=== PATIENT | female | born 1965 | race Caucasian/White ===

== ENCOUNTER 2023-01-21 08:54 | Emergency (ER) | payer SELFPAY ==
[2023-01-21 09:02] VITALS: BP 125/96; PULSE 75; RESP 18; TEMP 37.6; O2SAT 98
--- NOTE | 2023-01-21 09:03 | ED.SKABFB ---
HPI - Skin/Abscess/Foreign Bdy General Chief complaint: Skin/Abscess/Foreign Body Stated complaint: Bee Sting/ Face Time Seen by Provider: 01/21/23 09:03 Source: patient and RN notes reviewed History of Present Illness HPI narrative: Patient is a 57-year-old female who presents to urgent care with complaints of right eye redness, swelling and tenderness. Patient states that a large bumblebee got stuck under her glasses yesterday and bit her a few times near the right eye. Patient states that she has not had any changes in vision, difficulty breathing, sore throat or shortness of breath. Patient use the paste to the eye and does take daily Claritin. No other acute complaints. No acute distress noted. Patient aware of the plan of care. Some parts of this dictation were generated by voice recognition software and may contain typographical and/or grammatical inaccuracies. Related Data Home Medications Medication Instructions Recorded Confirmed fluticasone propionate 50 2 spray intranasal DAILY 01/21/23 01/21/23 mcg/actuation nasal spray,suspension (Flonase Allergy Relief) loratadine 10 mg tablet (Claritin) 10 mg PO DAILY 01/21/23 01/21/23 Allergies Allergy/AdvReac Type Severity Reaction Status Date / Time azithromycin Allergy Unknown DIARRHEA Verified 01/21/23 09:09 Review of Systems Review of Systems: CONSTITUTIONAL: Denies fever, chills, or sweats. EYES: Reports of swelling and redness to the right eye due to insect bite ENT: Denies rhinorrhea, congestion, sore throat, or otalgia. CARDIOVASCULAR: Denies chest pain, palpitations, or edema. RESPIRATORY: Denies cough or dyspnea. GASTROINTESTINAL: Denies abdominal pain, nausea, vomiting, or diarrhea. GENITOURINARY: Denies dysuria or hematuria. SKIN: Denies rash or itching. MUSCULOSKELETAL: Denies back pain, joint pain, or myalgia. NEUROLOGIC: Denies headache, numbness, or weakness. All other systems reviewed are negative, except as documented in HPI. PMFSH Comments At the time of my signature, I reviewed and agree with the nursing past medical, surgical, social, and family history. There is no relevant family history pertinent to the patient complaint. Exam Narrative: GENERAL: This is a well-nourished, well-developed patient, in no apparent distress. HEAD: normocephalic, atraumatic. EYES: PERRL. Sclera clear/white. Periorbital cellulitis to the right a notable to the upper eyelid with mild erythema and moderate edema. Vision is grossly intact. EARS: External ears normal NOSE: External nose normal with no obvious nasal discharge, nares without redness, no rhinorrhea. THROAT: Mucous membranes moist NECK: Neck supple SKIN: warm, intact with no suspicious lesions or rash, good texture and turgor. NEURO: awake, alert, and oriented to person, place and time. There were no obvious focal neurologic abnormalities. EXTREMITIES: No clubbing, cyanosis, or edema. Course Course Level of Care: Express Care Visit Vital Signs Vital signs: Vital Signs Temperature 99.6 F 01/21/23 09:02 Pulse Rate 75 01/21/23 09:02 Respiratory Rate 18 01/21/23 09:02 Blood Pressure 125/96 H 01/21/23 09:02 Pulse Oximetry 98 01/21/23 09:02 Oxygen Delivery Room Air 01/21/23 09:02 Temperature 99.6 F 01/21/23 09:02 Pulse Rate 75 01/21/23 09:02 Respiratory Rate 18 01/21/23 09:02 Blood Pressure 125/96 H 01/21/23 09:02 Pulse Oximetry 98 01/21/23 09:02 Oxygen Delivery Room Air 01/21/23 09:02 Reviewed- Patient is informed that they may have pre-hypertension or hypertension based on a blood pressure reading in the department. I recommend the patient call the primary care provider listed on their discharge instructions or a physician of their choice this week to arrange follow-up for further evaluation of possible pre-hypertension or hypertension. MDM - Skin/Abscess/Foreign Bdy MDM Narrative Medical decision making narrative: Advised patie
[2023-01-21] MEDS: predniSONE 20 MG TABLET 60 MG PO (09:24)
== END 2023-01-21 09:27 | disposition home or self-care (01) ==
PROVIDERS: Emergency Provider Nurse Practitioner Family
DX: T63.441A Toxic effect of venom of bees, accidental (unintentional), initial encounter (principal)
CPT/HCPCS: 99213; G0463; J7512